=== PATIENT | male | born 1955 | race Caucasian/White ===

== ENCOUNTER 2022-08-20 08:42 | Day surgery (SDC) | payer OTHER ==
[~2022-08-20] VITALS: Ht 172.7 cm; Wt 82.9 kg
[~2022-08-20 08:42] MED LIST: /LANS30GR; AMIT100T; AMIT50TA; ASPI81TA3; BISO10TA2; CARI1TAB7; CHLORZOXAZONE; CRANPOW2; DOXA1TAB49; FAMO40TA3; FISH1000; GABA-282 PO; GINSENG; LANS30CA93; LEVO50TA5; LORATAB; MILKPOW; MORP1TAB21 PO; MULTIVIT; NALO4SPR; NIAC500T; NS 1,000 ML IV ONE; OXYC40TA19; PANT40TA29; SERT100T; SOMA350T
[2022-08-20] MEDS ORDERED: LIDOCAINE 2% 100MG/5ML SDV (FOR ANES.) As Ordered ONE (09:55)
[2022-08-20] MEDS ORDERED: propofoL 200 MG/20 ML VIAL As Ordered ONE (09:55)
[2022-08-20 10:50] VITALS: BP 127/83
== END 2022-08-20 11:07 | disposition home or self-care (01) ==
LOC: M OPP 08:42
PROVIDERS: ATTEND Internal Medicine Gastroenterology
DX: K64.4 Residual hemorrhoidal skin tags (principal); K64.8 Other hemorrhoids; D50.9 Iron deficiency anemia, unspecified; K25.9 Gastric ulcer, unspecified as acute or chronic, without hemorrhage or perforation; K31.5 Obstruction of duodenum; K26.9 Duodenal ulcer, unspecified as acute or chronic, without hemorrhage or perforation; Z79.52 Long term (current) use of systemic steroids; Z79.82 Long term (current) use of aspirin; Z79.890 Hormone replacement therapy; Z79.891 Long term (current) use of opiate analgesic; Z79.899 Other long term (current) drug therapy; Z88.6 Allergy status to analgesic agent; D72.829 Elevated white blood cell count, unspecified; E03.9 Hypothyroidism, unspecified

== ENCOUNTER → 2022-10-21 | Outpatient (CLI) | payer MEDICARE, OTHER ==
[~2022-10-21] MED LIST changes: -AMIT50TA; +AMIT50TA PO; -CARI1TAB7; +CARI1TAB7 PO; -DOXA1TAB49; +DOXA1TAB49 PO; +FERR325T19 PO; +FERR325T81 PO; +LANS30CA93 PO; -LEVO50TA5; +LEVO50TA5 PO; -NS 1,000 ML IV ONE; -PANT40TA29; +PANT40TA29 PO; +SUCR1TAB56 PO
== END ==
LOC: M LABSMTC 11:05
PROVIDERS: ATTEND Anesthesiology
DX: Z01.818 Encounter for other preprocedural examination (principal); Z11.52 Encounter for screening for COVID-19

== ENCOUNTER 2022-10-26 13:05 | Day surgery (SDC) | payer OTHER ==
[~2022-10-26] VITALS: Ht 172.7 cm; Wt 86.6 kg
[2022-10-26] MEDS ORDERED: propofoL 200 MG/20 ML VIAL As Ordered ONE ×2 (15:34→16:02)
[2022-10-26] MEDS ORDERED: LIDOCAINE 2% 100MG/5ML SDV (FOR ANES.) As Ordered ONE (16:01)
[2022-10-26] MEDS ORDERED: ONDANSETRON 4MG 2ML VIAL As Ordered ONE (16:01)
[2022-10-26] MEDS ORDERED: ISOVUE-300 61% 100ML VIAL As Ordered ONE (16:08)
[2022-10-26 17:10] VITALS: BP 131/74
== END 2022-10-26 17:17 | disposition home or self-care (01) ==
LOC: M SDC 13:05
PROVIDERS: ATTEND Internal Medicine Gastroenterology
DX: K31.5 Obstruction of duodenum (principal); K29.70 Gastritis, unspecified, without bleeding; K31.89 Other diseases of stomach and duodenum; E03.9 Hypothyroidism, unspecified; K21.9 Gastro-esophageal reflux disease without esophagitis; Z79.899 Other long term (current) drug therapy; Z88.8 Allergy status to other drugs, medicaments and biological substances
CPT/HCPCS: 43245; 76000; J2405; Q9967

== ENCOUNTER 2023-01-28 12:39 | Day surgery (SDC) | payer OTHER ==
[~2023-01-28] VITALS: Ht 172.7 cm; Wt 88.2 kg
[~2023-01-28 12:39] MED LIST changes: +NS 1,000 ML IV ONE
[2023-01-28] MEDS ORDERED: LIDOCAINE 2% 100MG/5ML SDV (FOR ANES.) As Ordered ONE (14:28)
[2023-01-28] MEDS ORDERED: propofoL 200 MG/20 ML VIAL As Ordered ONE ×2 (14:28→14:41)
[2023-01-28 14:57] VITALS: TEMP 97.5
[2023-01-28 15:25] VITALS: BP 114/68; O2SAT 97
== END 2023-01-28 15:35 | disposition home or self-care (01) ==
LOC: M OPP 12:39
PROVIDERS: ATTEND Internal Medicine Gastroenterology
DX: K29.70 Gastritis, unspecified, without bleeding (principal); K31.5 Obstruction of duodenum; Z87.891 Personal history of nicotine dependence; Z79.890 Hormone replacement therapy; Z79.891 Long term (current) use of opiate analgesic; Z79.899 Other long term (current) drug therapy; Z88.8 Allergy status to other drugs, medicaments and biological substances